=== PATIENT | male | born 1940 | race Caucasian/White ===

== ENCOUNTER 2017-11-15 07:32 | Day surgery (SDC) | payer MEDICARE ==
[2017-11-15] MEDS: POVIDONE-IODINE 5% OPHTH PREP SOL 30ML As Ordered (06:32)
[2017-11-15] MEDS ORDERED: MIDAZOLAM INJ 2 MG/2 ML VIAL (J2250) As Ordered (08:14)
[2017-11-15] MEDS ORDERED: fentaNYL 100 MCG/2 ML INJECTION (J3010) As Ordered (08:14)
[2017-11-15] MEDS: TROPICAMIDE 1% OPHTH SOLN 2ML OS (08:32)
[2017-11-15] MEDS: PROPARACAINE 0.5% OPHTH SOL 15ML OS (08:33)
[2017-11-15] MEDS: OFLOXACIN 0.3 % (OCUFLOX) OPTH SOL 5ML OS (08:33)
[2017-11-15] MEDS: PHENYLEPHRINE 2.5% OPHTH SOL 2ML OS (08:33)
[2017-11-15] MEDS: BALANCED SALT IRRIGATION SOLUTION 500ML BAG (FOR OR EYE MACHINE) As Ordered (09:33)
[2017-11-15] MEDS: CEFUROXIME 1MG/0.1ML INTRACAMERAL INJ As Ordered (09:33)
[2017-11-15] MEDS: LIDOCAINE 0.75%/EPINEPHRINE 0.025% IN BSS 1ML SYR INTRACAMERAL (OR ONLY) As Ordered (09:33)
[2017-11-15] MEDS: DUOVISC (0.50ML VISCOAT/0.55ML PROVISC) OPHTH KIT As Ordered (09:33)
== END 2017-11-15 10:38 | disposition home or self-care (01) ==
LOC: M SDC 07:32
DX: H25.12 Age-related nuclear cataract, left eye (principal); I10 Essential (primary) hypertension; Z79.899 Other long term (current) drug therapy; Z79.82 Long term (current) use of aspirin
CPT/HCPCS: 66984

== ENCOUNTER 2017-11-29 06:03 | Day surgery (SDC) | payer MEDICARE ==
[2017-11-29] MEDS: PROPARACAINE 0.5% OPHTH SOL 15ML OD (06:43)
[2017-11-29] MEDS: TROPICAMIDE 1% OPHTH SOLN 2ML OD (06:43)
[2017-11-29] MEDS: PHENYLEPHRINE 2.5% OPHTH SOL 2ML OD (06:43)
[2017-11-29] MEDS: OFLOXACIN 0.3 % (OCUFLOX) OPTH SOL 5ML OD (06:43)
[2017-11-29] MEDS ORDERED: MIDAZOLAM INJ 2 MG/2 ML VIAL (J2250) As Ordered (07:34)
[2017-11-29] MEDS ORDERED: fentaNYL 100 MCG/2 ML INJECTION (J3010) As Ordered (07:34)
[2017-11-29] MEDS: TETRACAINE 0.5% OPHTH SOLN 4ML As Ordered (07:58)
[2017-11-29] MEDS: POVIDONE-IODINE 5% OPHTH PREP SOL 30ML As Ordered (07:59)
[2017-11-29] MEDS: LIDOCAINE 0.75%/EPINEPHRINE 0.025% IN BSS 1ML SYR INTRACAMERAL (OR ONLY) As Ordered (08:00)
[2017-11-29] MEDS: ACETYLCHOLINE OPHTH SOLN 1% 2ML (MIOCHOL-E) As Ordered (08:02)
[2017-11-29] MEDS: DUOVISC (0.50ML VISCOAT/0.55ML PROVISC) OPHTH KIT As Ordered (08:05)
[2017-11-29] MEDS: CEFUROXIME 1MG/0.1ML INTRACAMERAL INJ As Ordered (08:07)
== END 2017-11-29 08:52 | disposition home or self-care (01) ==
LOC: M SDC 06:03
DX: H25.11 Age-related nuclear cataract, right eye (principal); I10 Essential (primary) hypertension; N40.0 Benign prostatic hyperplasia without lower urinary tract symptoms; Z79.82 Long term (current) use of aspirin; Z87.891 Personal history of nicotine dependence; Z79.899 Other long term (current) drug therapy
CPT/HCPCS: 66984